=== PATIENT | male | born 1975 | race Caucasian/White ===

== ENCOUNTER 2017-06-06 20:50 | Emergency (ER) | payer BC, OTHER ==
[2017-06-06 20:55] VITALS: BP 135/100; PULSE 83; TEMP 98.6; BMI 25.4
[2017-06-06] MEDS ORDERED: ONDANSETRON 4 MG/2 ML VIAL IVPUSH ONE (21:05)
[2017-06-06] MEDS ORDERED: SODIUM CHLORIDE 0.9% 1000 ML INFUS.BAG IV ONE (21:05)
[2017-06-06] MEDS ORDERED: ONDANSETRON 4 MG/2 ML VIAL ONE (21:08)
--- NOTE | 2017-06-06 21:10 | PDOC ---
History of Present Illness - General History Source: Patient, Old Records Exam Limitations: No Limitations - History of Present Illness Initial Comments: 06/06/17 21:10 The patient is a 41 year old male with a past medical history of hypertension who presents to the emergency department with vomiting, diarrhea, headache, and eye pain for 18 hours. The patient states that on Wednesday he went to a [employer]. Today, the patient woke up at 3 am and has been vomiting and having episodes of diarrhea. He reports associated pounding headache and eye pain. He notes that he feels like he has not been taking in lots of fluids and feels dehydrated. He denies fever, sick contacts, and recent travel. <Al Carpenter - Last Filed: 06/06/17 21:11> <Jean Paul Alonso - Last Filed: 06/07/17 06:18> - General Chief Complaint: Vomiting/Diarrhea Stated Complaint: VOMITING & DIARRHEA Time Seen by Provider: 06/06/17 20:57 Past History <Al Carpenter - Last Filed: 06/06/17 21:11> - Past Medical History COPD: No HTN: Yes - Suicide/Smoking/Psychosocial Hx Smoking Status: Yes Smoking History: Never smoked Number of Cigarettes Smoked Daily: 0 Cigars Per Day: 0 Hx Alcohol Use: Yes (OCCASIONAL) Drug/Substance Use Hx: No Substance Use Type: None <Jean Paul Alonso - Last Filed: 06/07/17 06:18> - Past Medical History Allergies/Adverse Reactions: Allergies Allergy/AdvReac Type Severity Reaction Status Date / Time No Known Allergies Allergy Verified 06/06/17 21:45 Home Medications: Ambulatory Orders Metoclopramide HCl [Reglan] 10 mg PO TID PRN #6 tablet 06/06/17 Review of Systems - Review of Systems Able to Perform ROS?: Yes Comments:: 06/06/17 21:10 GENERAL/CONSTITUTIONAL: No fever or chills. No weakness. HEAD, EYES, EARS, NOSE AND THROAT: (+) Eye pain. No ear pain or discharge. No sore throat. CARDIOVASCULAR: No chest pain or shortness of breath. RESPIRATORY: No cough, wheezing, or hemoptysis. GASTROINTESTINAL: (+) nausea, vomiting, diarrhea. No: Constipation. GENITOURINARY: No dysuria, frequency, or change in urination. MUSCULOSKELETAL: No joint or muscle swelling or pain. No neck or back pain. SKIN: No rash NEUROLOGIC: (+) Headache. No: vertigo, loss of consciousness, or change in strength/sensation. ENDOCRINE: No increased thirst. No abnormal weight change. HEMATOLOGIC/LYMPHATIC: No anemia, easy bleeding, or history of blood clots. ALLERGIC/IMMUNOLOGIC: No hives or skin allergy. <Al Carpenter - Last Filed: 06/06/17 21:11> *Physical Exam - Vital Signs Last Vital Signs Temp Pulse Resp BP Pulse Ox 98.6 F 83 15 135/100 97 06/06/17 20:51 06/06/17 20:51 06/06/17 20:51 06/06/17 20:51 06/06/17 20:51 - Physical Exam Comments: 06/06/17 21:10 GENERAL: Awake, alert, and fully oriented, in no acute distress HEAD: No signs of trauma EYES: PERRLA, EOMI, sclera anicteric, conjunctiva clear ENT: Auricles normal inspection, hearing grossly normal, nares patent, oropharynx clear without exudates. Moist mucosa NECK: Normal ROM, supple, no lymphadenopathy, JVD, or masses LUNGS: Breath sounds equal, clear to auscultation bilaterally. No wheezes, and no crackles HEART: Regular rate and rhythm, normal S1 and S2, no murmurs, rubs or gallops ABDOMEN: Soft, nontender, normoactive bowel sounds. No guarding, no rebound. No masses EXTREMITIES: Normal range of motion, no edema. No clubbing or cyanosis. No cords, erythema, or tenderness NEUROLOGICAL: Cranial nerves II through XII grossly intact. Normal speech, normal gait SKIN: Warm, Dry, normal turgor, no rashes or lesions noted. <Al Carpenter - Last Filed: 06/06/17 21:11> - Vital Signs Last Vital Signs Temp Pulse Resp BP Pulse Ox 98.6 F 83 15 135/100 97 06/06/17 20:51 06/06/17 20:51 06/06/17 20:51 06/06/17 20:51 06/06/17 20:51 <Jean Paul Alonso - Last Filed: 06/07/17 06:18> Medical Decision Making - Medical Decision Making 06/07/17 06:17 acute gastroenteritis imporved after ED mgmt at time of dc, abd nt, tolerating PO <Jean Paul Alonso - Last Filed: 06/07/17 06:18> *DC/Admit/Observation/Transfer - Attestations Scribe Attestion: 06/06/17 21:11 Documentation prepared by Al Carpenter, acting as medical consultant for Jean Paul Alonso MD. <Al Carpenter - Last Filed: 06/06/17 21:11> <Jean Paul Alonso - Last Filed: 06/07/17 06:18> Diagnosis at time of Disposition: Gastroenteritis - Discharge Dispostion Disposition: HOME Condition at time of disposition: Good - Prescriptions Prescriptions: Metoclopramide HCl [Reglan] 10 mg PO TID PRN #6 tablet PRN Reason: Nausea - Referrals Referrals: Naga Caldwell MD [Primary Care Provider] - Call tomorrow - Patient Instructions Printed Discharge Instructions: DI for Viral Gastroenteritis -- Adult Additional Instructions: Immodium for diarrhea - Post Discharge Activity Forms/Work/School Notes: Back to Work
[2017-06-06] MEDS ORDERED: NAPROXEN 500 MG TABLET (FP) PO ONE (22:00)
[2017-06-06] MEDS ORDERED: NAPROXEN 500 MG TABLET (FP) ONE (22:01)
== END 2017-06-06 22:25 | disposition home or self-care (01) ==
LOC: FER 20:50
PROC: 3E033GC Introduction of Other Therapeutic Substance into Peripheral Vein, Percutaneous Approach (ICD-10-PCS; principal; 2017-06-06)
PROC: 3E0337Z Introduction of Electrolytic and Water Balance Substance into Peripheral Vein, Percutaneous Approach (ICD-10-PCS; 2017-06-06)
DX: K52.9 Noninfective gastroenteritis and colitis, unspecified (principal); I10 Essential (primary) hypertension
CPT/HCPCS: 99281-25

== ENCOUNTER 2017-09-18 15:59 | Emergency (ER) | payer BC, OTHER ==
[2017-09-18] MEDS ORDERED: LIDOCAINE HCL 2% (50ML VIAL) SQ ONE (16:02)
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
[2017-09-18 16:14] VITALS: BP 135/99; PULSE 80; TEMP 98.8; BMI 22.8
[2017-09-18] MEDS ORDERED: TETRACAINE 0.5% OPHTH SOLN 2 ML BOTTLE ONE (17:10)
[2017-09-18] MEDS ORDERED: FLUORESCEIN NA 1 EA STRIP ONE (17:10)
== END 2017-09-18 17:17 | disposition home or self-care (01) ==
LOC: FER 15:59
DX: S49.92XA Unspecified injury of left shoulder and upper arm, initial encounter (principal); X58.XXXA Exposure to other specified factors, initial encounter; Y93.75 Activity, martial arts; Y92.9 Unspecified place or not applicable; I10 Essential (primary) hypertension
CPT/HCPCS: 73030-TC-LT-FY; 99281-25

== ENCOUNTER 2018-03-13 14:42 | Emergency (ER) | payer BC, OTHER ==
[2018-03-13 14:50] VITALS: TEMP 98.1; BMI 24.3
--- NOTE | 2018-03-13 15:24 | PDOC ---
History of Present Illness - General Chief Complaint: Blood Pressure Problem Stated Complaint: HIGH BLOOD PRESSURE Time Seen by Provider: 03/13/18 15:21 - History of Present Illness Initial Comments: 03/13/18 15:22 42 year old man with past medical history of HTN that resolved after losing 20 pounds and after eating low sodium and vegetarian diet. Patient had a headache, with nausea and sweating that occurred this AM - checked BP at home 149/109 and at grocery store was 191/128. In triage was 167/120. At bedside multiple BP checked showed BP at 160-170 systolic and 100s diastolic. Patient does not take medications. Does not normally check BP, at routine check ups the patient's BP has been 120-130/ 80-90 Patient admits to significant life stressors and agrees that patient is under a lot of stress. Denies recent travel, recent illness, sick contacts, fevers, chest pain, shortness of breath, N/V/D/C, no dysuria or hematuria. No current headaches or nausea at bedside. Allergies: NKDA PCP: Dr. Naga Caldwell MD. Past History - Past Medical History Allergies/Adverse Reactions: Allergies Allergy/AdvReac Type Severity Reaction Status Date / Time No Known Allergies Allergy Verified 03/13/18 14:46 Home Medications: Ambulatory Orders Ibuprofen [Motrin -] 600 mg PO TID PRN #90 tablet 09/18/17 COPD: No HTN: Yes (resolced 5 yrs ago with weight loss) - Suicide/Smoking/Psychosocial Hx Smoking Status: Yes Smoking History: Never smoked Have you smoked in the past 12 months: No Number of Cigarettes Smoked Daily: 0 Cigars Per Day: 0 Hx Alcohol Use: Yes (OCCASIONAL) Drug/Substance Use Hx: No Substance Use Type: None *Physical Exam - Vital Signs Last Vital Signs Temp Pulse Resp BP Pulse Ox 98.1 F 72 18 167/120 H 99 03/13/18 14:44 03/13/18 14:44 03/13/18 14:44 03/13/18 14:44 03/13/18 14:44 ED Treatment Course - LABORATORY CBC & Chemistry Diagram: 03/13/18 15:40 03/13/18 15:40 Medical Decision Making - Medical Decision Making 03/13/18 15:52 42 year old man with past medical history of HTN that resolved after losing 20 pounds and after eating low sodium and vegetarian diet. Patient had a headache, with nausea and sweating that occurred this AM - checked BP at home 149/109 and at grocery store was 191/128. In triage was 167/120. At bedside multiple BP checked showed BP at 160-170 systolic and 100s diastolic. Patient does not take medications. Does not normally check BP, at routine check ups the patient's BP has been 120-130/ 80-90 DDX including but not limited to: W/U: - TX: - Scores: ED Course: *DC/Admit/Observation/Transfer Diagnosis at time of Disposition: Hypertension - Discharge Dispostion Disposition: HOME Condition at time of disposition: Stable Decision to Admit order: No - Referrals Referrals: Naga Caldwell MD [Primary Care Provider] - - Patient Instructions Printed Discharge Instructions: DI for High Blood Pressure Additional Instructions: You were seen in the ED for complaints of elevated blood pressure. In the ED you were evaluated with labwork and EKG. Your results were unremarkable. There does not appear to be an acute need for immediate hospitalization. You are advised to follow up with your Primary Care Physician within 1 week. Your PCP (Dr. Caldwell) was contacted and will see you in his office tomorrow at 11:30. Return to the ED immediately if you experience worsening headache, nausea, vomiting, chest pain, shortness of breath, diarrhea, constipation, lightheadedness, or loss of consciousness. - Post Discharge Activity Forms/Work/School Notes: Back to Work
[2018-03-13 15:57] LABS: EOS % 3.7 % (0-4.5); HEMATOCRIT 43.9 % (35.4-49); HEMOGLOBIN 15.6 GM/dL (11.7-16.9); MCH 31.1 pg (25.7-33.7); MCHC 35.6 g/dl (32.0-35.9); MEAN CELL VOLUME 87.3 fl (80-96); MEAN PLT VOLUME 8.7 fl (7.5-11.1); MONO % 11.9 % (3.8-10.2); NEUT % 60.4 % (42.8-82.8); PLATELET COUNT 281 K/MM3 (134-434); RBC 5.02 M/mm3 (4.00-5.60); RDW 12.3 % (11.9-15.9); WHITE BLOOD COUNT 8.7 K/mm3 (4.0-10.0)
[2018-03-13 16:30] LABS: ALBUMIN 3.7 g/dl (3.4-5.0); ALK PHOS 82 U/L (45-117); ANION GAP 6 MMOL/L (8-16); BILIRUBIN,TOTAL 0.6 mg/dL (0.2-1); BLOOD UREA NITROGEN 12 mg/dL (7-18); CALCIUM 8.7 mg/dL (8.5-10.1); CHLORIDE 107 mmol/L (98-107); CHOLESTEROL 167 mg/dL (50-200); CO2 27 mmol/L (21-32); CREATININE 0.7 mg/dL (0.55-1.3); GLUCOSE,RANDOM 80 mg/dL (74-106); HDL CHOLESTEROL 50 mg/dL (40-60); POTASSIUM 4.2 mmol/L (3.5-5.1); SGOT/AST 19 U/L (15-37); SGPT/ALT 28 U/L (13-61); SODIUM 140 mmol/L (136-145); TOT PROT 7.4 g/dl (6.4-8.2); TRIGLYCERIDES 92 mg/dL (0-150)
--- NOTE | 2018-03-13 17:17 | PDOC ---
Attending Attestation - Resident Resident Name: Yvrose Fuentes - ED Attending Attestation I have performed the following: I have examined & evaluated the patient, The case was reviewed & discussed with the resident, I agree w/resident's findings & plan - HPI HPI: 03/13/18 18:03 The patient is a 42 year old male, with a significant PMH of HTN that resolved after losing 20 pounds from eating a low sodium/vegetarian diet, who presents to the emergency department for evaluation of high blood pressure today. The patient states his blood pressure was 149/109 today and endorses associated symptoms of nausea and sweating for 2 weeks that has progressively worsened today. The patient does not take any medication and does not normally check BP. He mentions he is currently under a lot of stress which he does not want to disclose. The patient reports all symptoms resolved after arriving to the ER with a blood pressure of 157/107. The patient denies chest pain, shortness of breath, headache and dizziness. Denies fever, chills, vomit, diarrhea and constipation. Allergies: NKDA Past surgical history: None reported Social history: None reported PCP: Dr. Naga Caldwell - Physicial Exam PE: 03/13/18 18:03 NAD, well appearing, PERRL, EOMI, MMM, nl conjunctiva, anicteric; neck supple. lungs clear, RRR, abdomen soft nontender. HOLLEY x4, no focal neuro deficits. No peripheral edema. normal color for ethnicity, WWP. - Medical Decision Making 03/13/18 17:15 Ana María 42 YOM with HTN presenting with elevated BP. currently symptoms resolved. Stressors noted. Currently asymptomatic Vital signs reviewed, hypertension noted. Prior notes reviewed, including admissions, discharges and consultations. laboratory results and imaging reviewed, basic labs and lytes wnl, notable for normal LFTs and Cr. UA_clear, no glucose or proteins. Cardiac panel_neg troponin EKG normal sinus rhythm, no interval abnormalities, narrow QRS, ST and T wave segments and morphology normal. Nonspecific T wave abnormalities and flattening noted in III only, no contiguous lead changes ED course: no acute events, remained stable and well appearing. repeat VS normalizing, with downtrending BP. asymptomatic, no further indication to treat in the ED. no e/o end organ damage. spoke and updated with Dr. Caldwell, will see as OP, start metoprolol PO regimen for BP Dispo: DC in stable condition, avoid stressors. f/u PCP, return precautions discussed. avoid salty intake and high caffeine pt and family verbalized understanding, updated on the results and impression/ plan, agreeable. 03/13/18 18:02 03/13/18 18:03
[2018-03-13 17:24] LABS: URINE APPEARANCE CLEAR; URINE BILIRUBIN NEGATIVE (<2.0 mg/dL); URINE COLOR YELLOW; URINE GLUCOSE (UA) NEGATIVE (NEGATIVE); URINE KETONE NEGATIVE (NEGATIVE); URINE LEUK ESTERASE NEGATIVE (NEGATIVE); URINE NITRITE NEGATIVE (NEGATIVE); URINE PROTEIN NEGATIVE (NEGATIVE); URINE UROBILINOGEN NEGATIVE mg/dL (0.2-1.0)
[2018-03-13] MEDS ORDERED: metoPROLOL SUCCINATE 25 MG TAB.SR.24H (FP) PO ONE (17:39)
[2018-03-13 18:51] VITALS: BP 142/101; PULSE 68
--- NOTE | 2018-03-14 10:32 | EKG ---
Test Reason : Blood Pressure : / mmHG Vent. Rate : 056 BPM Atrial Rate : 056 BPM P-R Int : 174 ms QRS Dur : 086 ms QT Int : 380 ms P-R-T Axes : 043 003 027 degrees QTc Int : 366 ms SINUS BRADYCARDIA MINIMAL VOLTAGE CRITERIA FOR LVH, MAY BE NORMAL VARIANT BORDERLINE ECG WHEN COMPARED WITH ECG OF 04-FEB-2015 19:30, NO SIGNIFICANT CHANGE WAS FOUND Confirmed by AUGUSTO PANDA MD ([id number]) on 03/14/2018 10:32:13 AM Referred By: Confirmed By:AUGUSTO PANDA MD
== END 2018-03-13 18:56 | disposition home or self-care (01) ==
LOC: JER 14:42
DX: I10 Essential (primary) hypertension (principal)
CPT/HCPCS: 36415; 80053; 80061; 81003; 83721; 84443; 84484; 85025; 87086; 93005; 93010; 99283-25

== ENCOUNTER 2018-06-28 18:58 | Emergency (ER) | payer BC, OTHER ==
--- NOTE | 2018-06-28 19:11 | PDOC ---
Rapid Medical Evaluation Chief Complaint: Blood Pressure Problem Time Seen by Provider: 06/28/18 19:08 Medical Evaluation: Allergies Allergy/AdvReac Type Severity Reaction Status Date / Time No Known Allergies Allergy Verified 03/13/18 14:46 06/28/18 19:09 I have performed a brief in person evaluation of this patient. CC: "My blood pressure won't go down." HPI: Pt is a 42 YO who has hx of HTN x 2 months and states that his BP at home is 146-179 systolic. Denies CP, admits to MONK. PE: Skin: Clear Lungs: Clear Heart:RRR MS: Moves all extremities without difficulty Neuro: Alert and oriented Psych: Appropriate affect Pt will proceed to the main ED for further evaluation. Discharge Disposition - Diagnosis Hypertension Qualifiers: Hypertension type: unspecified Qualified Code(s): I10 - Essential (primary) hypertension - Referrals - Patient Instructions - Post Discharge Activity
[2018-06-28 19:17] VITALS: TEMP 98.3; BMI 25.8
[2018-06-28 21:15] VITALS: BP 178/108; PULSE 57
--- NOTE | 2018-06-28 21:28 | PDOC ---
History of Present Illness - General Chief Complaint: Blood Pressure Problem Stated Complaint: HIGH BLOOD PRESSURE Time Seen by Provider: 06/28/18 19:08 History Source: Patient, Significant Other Exam Limitations: No Limitations - History of Present Illness Initial Comments: HPI: 42 y/o male presenting to [facility] ER complaining of a headache and elevated blood pressure. Pt reports a generalized headache starting last Wednesday at approx. 4am after waking from sleep. Pain is diffuse and bilateral with single episode on Wednesday of radiation to right neck, jaw, and chest. Over the past several days, pt reports the headache has fluctuate in intensity without full resolution. However, pt denies active pain at time of interview. Endorses episodes of blurry vision and lacrimation that resolve with rest. Endorses two episodes of nocturnal diaphoresis. Unable to recall change in pain with body positioning. Denies nausea, vomiting, feves, chills, chest pain, or SOB. Has experienced similar pain several months ago and believes it was related to his blood pressure. Has attempted relief with OTC Tylenol and taking a second dose of his Bystolic. Was evaluated at PCPs office yesterday. Told he possibly had the flu. Contacted again today via telephone, who instructed to take the second Bystolic dose. Scheduled for re-evaluation in clinic next week. PCP: Dr. Paulette Salamanca Hx: - Tobacco: Denies - EtoH: Infrequent socially - Street Drugs: Denies - Occupation: Unemployed - [employer] Hx: - HTN Past History - Past Medical History Allergies/Adverse Reactions: Allergies Allergy/AdvReac Type Severity Reaction Status Date / Time No Known Allergies Allergy Verified 06/28/18 19:11 Home Medications: Ambulatory Orders Nebivolol [Bystolic -] 5 mg PO DAILY 06/28/18 COPD: No HTN: Yes - Suicide/Smoking/Psychosocial Hx Smoking Status: Yes Smoking History: Never smoked Have you smoked in the past 12 months: No Number of Cigarettes Smoked Daily: 0 Cigars Per Day: 0 Hx Alcohol Use: No Drug/Substance Use Hx: No Substance Use Type: None Review of Systems - Review of Systems Able to Perform ROS?: Yes Comments:: In addition to that documented in the HPI above, the additional ROS was obtained : Constitutional: Denies fevers or chills Head: Per HPI ENMT: Denies sore throat CV: Denies chest pain Resp: Denies SOB GI: Denies vomiting or diarrhea : Denies painful urination MSK: Denies recent trauma Skin: Denies new rashes Neuro: Denies new numbness or tingling or weakness. Denies disequilibrium. Endocrine: Denies polyuria Heme: Denies bleeding or bruising *Physical Exam - Vital Signs Last Vital Signs Temp Pulse Resp BP Pulse Ox 98.3 F 57 L 18 178/108 H 99 06/28/18 19:11 06/28/18 21:15 06/28/18 19:43 06/28/18 21:15 06/28/18 21:15 - Physical Exam Comments: Constitutional: Well-developed, well-nourished adult male in no acute distress or obvious discomfort. Found semi-fowlers. Alert and oriented x4. Answered all questions appropriately and completely. Speech was non-labored, non-pressured. Head: Normocephalic. No obvious external signs of trauma. Eyes: Pupils 4mm and PERRL bilaterally. EOMI. Sclerae white. Conjunctiva moist and not injected. Ears: External auditory canals and tympanic membranes clear. Hearing grossly intact. Nose: No nasal discharge. Throat: Oral cavity and pharynx normal. No inflammation, swelling, exudate, or lesions. Teeth and gingiva in good general condition. Neck: Supple, trachea is midline. Cardiovascular / Chest: Regular rate and regular rhythm. No murmur, rubs, clicks, or gallops. Peripheral pulses: radial pulses full. Respiratory: Breathing unlabored. Equal chest rise and fall. Clear to auscultation bilaterally. No stridor, no wheezing, no rhonchi. Gastrointestinal: abdomen is soft, non-tender, non-distended. Neuro: Alert and oriented. Moving all four extremities spontaneously. No nuchal rigidity. Gait normal. Observed pt walking unassisted through the department without difficulty. Face symmetrical. Speech normal. Skin: Warm, dry, and intact. No bruising, rashes, or other lesions. Psych: Affect: appropriate. Mood: normal. Moderate Sedation - Procedure Monitoring Vital Signs: Procedure Monitoring Vital Signs Temperature 98.3 F 06/28/18 19:11 Pulse Rate 57 L 06/28/18 21:15 Respiratory Rate 18 06/28/18 19:43 Blood Pressure 178/108 H 06/28/18 21:15 O2 Sat by Pulse Oximetry (%) 99 06/28/18 21:15 ED Treatment Course - RADIOLOGY Radiology Studies Ordered: Category Date Time Status HEAD CT WITHOUT CONTRAST [CT] Stat CT Scan 06/28/18 20:53 Ordered Medical Decision Making - Medical Decision Making *Reviewed vital signs, nursing notes, and prior visit documentation (if available). 42 y/o male with h/o of HTN on single antihypertensive agent presenting with complaints of headache in setting of elevated BP. Afebrile. Vitals remarkable for hypertension without tachycardia. Physical exam as described above. Pt very well appearing. Suspect tension headache versus cluster headache versus migraine. Pt reports no active headache at time of interview. EKG revealed sinus rhythm without ectopy. Head CT unremarkable for acute intracranial process. Low suspicion for hemorrhage or mass. Pt reassessed and reports no further headache. Expressed concern about elevated BP. Discussed fact that pts pressure was elevated but below the range of hypertensive emergency. Explained hesitation of starting new antihypertensives in the department. Discussed physical exam findings and laboratory results with pt. Answered all questions. Provided return precautions. Pt expressed verbal understanding and agreement with plan to discharge home with outpatient follow up. *DC/Admit/Observation/Transfer Diagnosis at time of Disposition: Hypertension Qualifiers: Hypertension type: unspecified Qualified Code(s): I10 - Essential (primary) hypertension - Discharge Dispostion Disposition: HOME Condition at time of disposition: Good Decision to Admit order: No - Referrals Referrals: Naga Caldwell MD [Primary Care Provider] - - Patient Instructions Printed Discharge Instructions: DI for High Blood Pressure Additional Instructions: You were seen today for a headache and high blood pressure. Your blood pressure was elevated but not within the normal stroke range. Your head CT was normal. Your EKG was normal. The headache is likely caused by muscle tension. I would suggest taking your blood pressure less frequently than once an hour. Your anxiety regarding the number is likely contributing to your discomfort. You can take over the counter Tylenol or Advil as needed for pain. Take as directed on the package insert. Do not exceed the recommended dosage. Follow up with your primary care doctor at your previously scheduled appointment. A copy of todays results are attached to this packet. Take it to the appointment so your doctor can review them. Go to the nearest emergency department if your condition worsens or you feel like you need additional emergency evaluation. Print Language: [place] - Post Discharge Activity
--- NOTE | 2018-06-28 21:56 | PDOC ---
Attending Attestation - Resident Resident Name: Bobby Lockett - ED Attending Attestation I have performed the following: I have examined & evaluated the patient, The case was reviewed & discussed with the resident, I agree w/resident's findings & plan, Exceptions are as noted - HPI HPI: 06/28/18 21:55 CC-year-old male who started state systolic for 2 months. Presents because his blood pressure continues to be elevated. He is also concerned because he had some headache earlier that he states now has resolved. He does have an appointment with his primary care physician to further investigate his blood pressure medication requirements - Physicial Exam PE: 06/28/18 21:55 slender 42-year-old male in no acute distress.He has been taking his blood pressure hourly at home and it has remained elevated so he came to the ER head ncat eyes loren eomi neck supple lungs cta b/l cvs [id number] abd nontender skn warm and dry no cva tenderness neuro axox3,ambulatory no focal neuro deficits psych appropriate - Medical Decision Making 06/28/18 21:59 pt has no chest pain, no shortness of breath, no nausea,no coughing,no vomiting, no visual changes and his headache resolved without intervention he does not want any further medications this evening .He came because he thought that if he had a systolic blood pressure of 170 he would have a stroke. He has no focal neuro deficits ct scan of the head is negative for any acute intracranial pathology -he does have an appt with his primary doctor already imp essential HTN
--- NOTE | 2018-06-30 02:38 | EKG ---
Test Reason : Blood Pressure : / mmHG Vent. Rate : 045 BPM Atrial Rate : 045 BPM P-R Int : 168 ms QRS Dur : 088 ms QT Int : 402 ms P-R-T Axes : 042 006 016 degrees QTc Int : 347 ms SINUS BRADYCARDIA MINIMAL VOLTAGE CRITERIA FOR LVH, MAY BE NORMAL VARIANT BORDERLINE ECG WHEN COMPARED WITH ECG OF 13-MAR-2018 16:00, NO SIGNIFICANT CHANGE WAS FOUND Confirmed by ALMA COSBY MD ([id number]) on 06/30/2018 2:38:14 AM Referred By: Confirmed By:ALMA COSBY MD
== END 2018-06-28 22:17 | disposition home or self-care (01) ==
LOC: JER 18:58
DX: I10 Essential (primary) hypertension (principal)
CPT/HCPCS: 70450-TC; 93005; 93010; 99282-25